=== PATIENT | male | born 1960 | race Caucasian/White ===

== ENCOUNTER 2024-08-06 22:08 | Emergency (ER) | payer OTHER ==
[~2024-08-06] VITALS: Ht 182.9 cm; Wt 90.0 kg
[2024-08-06] MEDS ORDERED: NITROGLYCERIN 0.4 MG/TAB SL ONE (22:45)
[2024-08-06 23:09] VITALS: BP 150/74
[2024-08-06 23:12] LABS: URINE BILIRUBIN - DIPSTICK Negative (NEGATIVE); URINE BLOOD DIPSTICK Trace-intact (NEGATIVE); URINE COLOR Yellow; URINE GLUCOSE - DIPSTICK Negative (NEGATIVE); URINE KETONE Negative (NEGATIVE); URINE LEUK ESTERASE Negative (NEGATIVE); URINE NITRITE - DIPSTICK Negative (Negative); URINE PH 5.5 (4.5-8.0); URINE PROTEIN - DIPSTICK Negative (NEG-TRACE); URINE SPECIFIC GRAVITY 1.015; URINE UROBILINOGEN - DIPSTICK 0.2 E.U./dL (0.2)
[2024-08-06 23:13] LABS: BASO% 0.3 % (0-3); EOS% 0.1 % (0-8); HEMATOCRIT 43.9 % (39.0-50.0); HEMOGLOBIN 14.8 g/dl (14.0-18.0); IMMATURE GRANULOCYTES 0.5 % (0.0-5.0); LYMPH% 19.2 % (15-41); MEAN CELL VOLUME 102.8 fL CALC (80.0-100.0); MEAN CORPUSCULAR HGB 34.7 pG CALC (26.0-32.0); MEAN CORPUSCULAR HGB CONC 33.7 g/dL CAL (32.0-36.0); MONO% 16.1 % (2-13); NEUT# 5.51 thou/uL (1.82-7.42); NEUT% 63.8 % (42-76); RED BLOOD COUNT 4.27 mill/uL (4.70-6.10); RED CELL DISTRI WIDTH 15.1 % (11.5-15.5)
[2024-08-06 23:30] VITALS: BP 128/76
[2024-08-06 23:31] LABS: ALBUMIN 4.4 g/dL (3.2-5.0); ALKALINE PHOSPHATASE 57 u/l (38-126); ANION GAP 12 (6-22 (CALC)); BILIRUBIN, TOTAL 0.6 mg/dL (0.2-1.3); BUN 16 mg/dL (8-23); BUN/CREATININE RATIO 21 (12-20 (CALC)); CARBON DIOXIDE 25 mmol/l (22-30); CHLORIDE 106 mmol/l (95-108); CREATININE 0.8 mg/dL (0.7-1.3); ESTIMATED GFR 99 ML/MIN (>=90 (CALC)); POTASSIUM 4.2 mmol/l (3.5-5.1); SGOT/AST 38 u/l (19-48); SODIUM 139 mmol/l (137-146); TOTAL PROTEIN 7.3 g/dL (6.3-8.2)
[2024-08-07] VITALS: BP 162/89
[2024-08-07] MEDS ORDERED: MORPHINE SULFATE 4 MG/ML VIAL IV ONE ×2 (00:10→01:10)
[2024-08-07] MEDS ORDERED: ONDANSETRON HCl 4 MG/2 ML SDV IV ONE (00:10)
[2024-08-07 00:11] LABS: ACT PARTIAL THROMBO TIME 25.4 SECONDS (20.0-32.5); INTERNATIONAL NORMALIZED RATIO 0.9 RATIO (0.7-1.3); PROTHROMBIN TIME 9.9 SECONDS (9.0-12.5)
[2024-08-07 01:01] VITALS: BP 154/80
[2024-08-07 01:30] VITALS: BP 152/86
[2024-08-07 03:00] VITALS: BP 149/88
[2024-08-07 03:46] VITALS: BP 149/88
== END 2024-08-07 03:46 | disposition home or self-care (01) | DRG 313 ==
LOC: ED 22:08
PROVIDERS: Emergency Medicine
DX: R07.9 Chest pain, unspecified (principal); C91.Z0 Other lymphoid leukemia not having achieved remission; M06.9 Rheumatoid arthritis, unspecified; Z86.711 Personal history of pulmonary embolism; Z79.01 Long term (current) use of anticoagulants; Z20.822 Contact with and (suspected) exposure to COVID-19
CPT/HCPCS: J2405; Q9967